=== PATIENT | male | born 1960 | race Caucasian/White ===

== ENCOUNTER 2019-03-10 21:06 | Observation (INO) ==
[2019-03-10] MEDS ORDERED: ONDANSETRON 4 MG/2 ML VIAL IV STA (21:47)
[2019-03-10 22:02] LABS: Basophils % 0.5 % (0.0-0.8); Eosinophils # 0.1 10*3/uL (0.0-0.87); Eosinophils % 1.9 % (0.00-10.9); Hematocrit 43.4 VOL% (42.0-52.0); Immature Granulocytes % 0.2 %; Immature Granulocytes Absolute 0.01 #; Lymphocytes # 2.4 10*3/uL (1.4-4.0); Lymphocytes % 41.4 % (21.2-54.2); Mean Corpuscular HGB Conc 32.3 GM/DL (32-36); Mean Corpuscular Volume 92.1 FL (87-102); Mean Platelet Volume 10.1 FL (9.6-12.0); Monocytes % 7.3 % (1.7-12.7); Neutrophils % 48.7 % (38.7-73.9); Platelet Count 214 T/CUMM (130-400); Red Blood Count 4.71 MC/CUMM (3.8-5.5); Red Cell Distribution Width 12.8 % (9.3-17.3); White Blood Count 5.7 T/CUMM (4-12)
[2019-03-10 22:15] LABS: PT Patient Result 11.2 SECS; Partial Thromboplastin Time 25.1 SECS (0-40)
[2019-03-10 22:27] LABS: Apearance,Urine CLEAR (Clear); Bilirubin,Urine Negative (Negative); Blood, Urine Negative (Negative); Glucose,Urine (UA) >=500 mg/dL (Negative); Ketones,Urine 5 mg/dL (Negative); Mucus,Urine Occasional /LPF (Occasional); Nitrite,Urine Negative (Negative); Protein,Urine Negative; RBC,Urine 2 /HPF (0-4); Urine Color Yellow (Yellow); Urine Specific Gravity 1.023 (1.001-1.035)
[2019-03-10 22:31] LABS: Alanine Aminotransferase 114 U/L (16-61); Albumin 3.9 G/DL (3.4-5.0); Alkaline Phosphatase 69 U/L (45-117); Aspartate Amino Transferase 135 U/L (0-37); Blood Urea Nitrogen 13 MG/DL (7-18); Calcium 8.6 MG/DL (8.5-10.1); Glucose 269 MG/DL (74-106); Osmolality,Calculated 278.1 MOS/KG (273-304); Total Protein 7.4 G/DL (6.4-8.3); Troponin I < 0.015 NG/ML (0.00-0.045)
[2019-03-10] MEDS ORDERED: MAGNESIUM SULF RIDER 2 GM in PREMIX 1 EACH IV STA (22:50)
[2019-03-10] MEDS ORDERED: CALCIUM CHLORIDE 1,000 MG/10 ML SYRINGE IV STA (22:50)
[2019-03-10 22:59] LABS: Barbiturates Screen,Urine Negative (Negative); Benzodiazepines Screen,Urine Negative (Negative); Cannabinoid Screen,Urine Negative (Negative); Opiate Screen,Urine Positive (Negative); Phencyclidine Screen,Urine Negative (Negative)
[2019-03-10] MEDS ORDERED: ONDANSETRON 4 MG/2 ML VIAL IV PRN (23:42)
[2019-03-10] MEDS ORDERED: DEXTROSE 50% 25 GM/50 ML VIAL IV PRN (23:42)
[2019-03-10] MEDS ORDERED: DOCUSATE SODIUM 100 MG CAPSULE PO PRN (23:42)
[2019-03-10] MEDS ORDERED: ACETAMINOPHEN 325 MG TABLET PO PRN (23:42)
[2019-03-10] MEDS ORDERED: GLUCAGON 1 MG VIAL IM PRN (23:42)
[2019-03-10] MEDS ORDERED: SODIUM CHLORIDE 0.9% 1,000 ML IV SCH (23:45)
[2019-03-10] MEDS ORDERED: MAGNESIUM SULF RIDER 4 GM in PREMIX 1 EACH IV PRN (23:46)
[2019-03-10] MEDS ORDERED: MAGNESIUM SULF RIDER 2 GM in PREMIX 1 EACH IV PRN (23:46)
[2019-03-11] MEDS ORDERED: NITROGLYCERIN SL 0.4 MG TABLET SL PRN (01:58)
[2019-03-11 02:26] LABS: Risk Ratio 6.35; Thyroid Stimulating Hormone 2.1 uIU/ml (0.358-3.74); VLDL CHOLESTEROL 136.2 MG/DL
[2019-03-11 05:59] LABS: Basophils % 0.7 % (0.0-0.8); Eosinophils # 0.1 10*3/uL (0.0-0.87); Eosinophils % 2.3 % (0.00-10.9); Hematocrit 39.8 VOL% (42.0-52.0); Hemoglobin 12.6 GM/DL (14.0-18.0); Immature Granulocytes % 0.4 %; Immature Granulocytes Absolute 0.02 #; Lymphocytes # 2.6 10*3/uL (1.4-4.0); Lymphocytes % 45.9 % (21.2-54.2); Mean Corpuscular HGB Conc 31.7 GM/DL (32-36); Mean Corpuscular Volume 92.1 FL (87-102); Mean Platelet Volume 10.1 FL (9.6-12.0); Monocytes % 8.9 % (1.7-12.7); Neutrophils % 41.8 % (38.7-73.9); Platelet Count 176 T/CUMM (130-400); Red Blood Count 4.32 MC/CUMM (3.8-5.5); Red Cell Distribution Width 12.9 % (9.3-17.3); White Blood Count 5.6 T/CUMM (4-12)
[2019-03-11 06:15] LABS: Calcium 9.3 MG/DL (8.5-10.1); Osmolality,Calculated 278.5 MOS/KG (273-304)
[2019-03-11] MEDS: INSULIN LISPRO 100 UNIT/ML SUBCUT SCH ×2 (08:03→11:50)
[2019-03-11] MEDS ORDERED: ENOXAPARIN 40 MG/0.4 ML SYRINGE SUBCUT SCH (09:00)
[2019-03-11] MEDS ORDERED: SPIRONOLACTONE 25 MG TABLET PO SCH (09:00)
[2019-03-11] MEDS ORDERED: METOPROLOL TARTRATE 25 MG TABLET PO SCH (09:00)
[2019-03-11] MEDS ORDERED: amLODIPine 5 MG TABLET PO SCH (09:00)
[2019-03-11] MEDS ORDERED: FENOFIBRATE 160 MG TABLET PO SCH (09:00)
[2019-03-11] MEDS ORDERED: MULTIVITAMIN (CENTRUM) TABLET PO SCH (09:00)
[2019-03-11] MEDS ORDERED: ASPIRIN EC 325 MG TABLET PO SCH (09:00)
[2019-03-11] MEDS ORDERED: PANTOPRAZOLE 40 MG TABLET PO SCH ×2 (09:00→21:00)
[2019-03-11] MEDS ORDERED: INSULIN NPH 100 UNIT/ML SUBCUT SCH ×2 (09:00)
[2019-03-11] MEDS ORDERED: DULoxetine 30 MG CAPSULE PO SCH (09:00)
[2019-03-11] MEDS ORDERED: POTASSIUM CHLORIDE 20 MEQ TABLET PO PRN (09:22)
[2019-03-11] MEDS ORDERED: INSULIN ASPART SQ SCH (09:30)
[2019-03-11] MEDS ORDERED: FUROSEMIDE 40 MG TABLET PO PRN (10:00)
[2019-03-11] MEDS ORDERED: CYANOCOBALAMIN 500 MCG TABLET PO SCH (10:00)
[2019-03-11] MEDS ORDERED: OMEGA 3 ACID ETHYL ESTERS 1 GM CAPSULE PO SCH (11:00)
[2019-03-11] MEDS ORDERED: INSULIN LISPRO 100 UNIT/ML SUBCUT SCH (11:30)
[2019-03-11 12:07] VITALS: BP 129/83
[2019-03-11] MEDS ORDERED: MAGNESIUM CHLORIDE 64 MG TABLET PO SCH (21:00)
[2019-03-11] MEDS ORDERED: INSULIN REGULAR 100 UNIT/ML SUBCUT SCH (21:00)
[2019-03-11] MEDS ORDERED: AMITRIPTYLINE 50 MG TABLET PO SCH (21:00)
[2019-03-11] MEDS ORDERED: ALPHA LIPOIC ACID PO SCH (21:00)
[2019-03-12] MEDS ORDERED: ROSUVASTATIN 10 MG TABLET PO SCH (09:00)
== END 2019-03-11 15:20 | disposition home or self-care (01) ==
LOC: N.ED 21:06 → N.EDINP 21:06 → N.3E 03-11 01:42
PROVIDERS: ADMIT Internal Medicine; ATTEND Internal Medicine